=== PATIENT | female | born 1990 | race Caucasian/White ===

== ENCOUNTER 2019-02-18 13:18 | Outpatient (CLI) | payer OTHER | END 2019-02-18 23:59 | disposition home or self-care (01) | LOC: LAB 13:18 | PROVIDERS: ATTEND Obstetrics & Gynecology Obstetrics | DX: N91.2 Amenorrhea, unspecified (principal) | CPT/HCPCS: 36415; 84702 ==

== ENCOUNTER 2019-06-02 12:28 | Outpatient (CLI) | payer OTHER | END 2019-06-02 23:59 | disposition home or self-care (01) | LOC: RAD 12:28 | PROVIDERS: ATTEND Obstetrics & Gynecology Obstetrics | DX: E04.2 Nontoxic multinodular goiter (principal) | CPT/HCPCS: 76536 ==

== ENCOUNTER 2019-06-15 09:37 | Outpatient (CLI) | payer OTHER ==
[2019-06-17 13:11] LABS: FSH, SERUM 6.4 mIU/mL (.); INSULIN 5.7 uIU/mL (2.6-24.9); PROLACTIN 7.4 ng/mL (4.8-23.3)
== END 2019-06-15 23:59 | disposition home or self-care (01) ==
LOC: LAB 09:37
PROVIDERS: ATTEND Specialist
DX: Z31.89 Encounter for other procreative management (principal); N97.0 Female infertility associated with anovulation
CPT/HCPCS: 36415; 82947; 83001; 83525; 84146; 84402; 84403; 84439; 84443

== ENCOUNTER 2020-01-01 11:42 | Emergency (ER) | payer OTHER ==
[~2020-01-01] VITALS: Ht 175.3 cm; Wt 64.0 kg
[2020-01-01 11:55] VITALS: BP 132/96
[2020-01-01] MEDS ORDERED: BENZ-16 PO (11:59)
[2020-01-01] MEDS ORDERED: ALBU8.5H8 IH (11:59)
[2020-01-01] MEDS ORDERED: AZIT250T82 PO (11:59)
== END 2020-01-01 12:08 | disposition home or self-care (01) ==
LOC: ER 11:42
DX: J02.9 Acute pharyngitis, unspecified (principal); R05 Cough; R09.89 Other specified symptoms and signs involving the circulatory and respiratory systems; R51 Headache; M79.18 Myalgia, other site; R53.83 Other fatigue; Z79.899 Other long term (current) drug therapy
CPT/HCPCS: 99283

== ENCOUNTER 2020-05-10 09:10 | Emergency (ER) | payer BC, OTHER ==
[~2020-05-10] VITALS: Ht 175.3 cm; Wt 68.2 kg
[~2020-05-10 09:10] MED LIST: ALBU8.5H8 IH
[2020-05-10 09:25] VITALS: BP 124/68
== END 2020-05-10 10:03 | disposition home or self-care (01) ==
LOC: ER 09:11
DX: Z03.818 Encounter for observation for suspected exposure to other biological agents ruled out (principal); O98.511 Other viral diseases complicating pregnancy, first trimester; R50.9 Fever, unspecified; M79.10 Myalgia, unspecified site; R11.2 Nausea with vomiting, unspecified; R19.7 Diarrhea, unspecified; R53.1 Weakness; Z3A.08 8 weeks gestation of pregnancy; Z79.899 Other long term (current) drug therapy
CPT/HCPCS: 36415; 99283

== ENCOUNTER 2020-06-01 12:49 | Outpatient (CLI) | payer BC ==
[2020-06-01 13:57] LABS: BASOPHILS # (AUTO) 0.1 X10'3 (0-0.2); BASOPHILS % (AUTO) 0.6 % (0-1); EOSINOPHILS # (AUTO) 0.2 X10'3 (0-0.9); EOSINOPHILS % (AUTO) 1.4 % (0-6); HEMATOCRIT 37.3 % (35.0-45.0); HEMOGLOBIN 12.4 g/dl (12.0-16.0); LYMPHOCYTES # (AUTO) 1.9 X10'3 (1.1-4.8); MEAN CORPUSCULAR HEMOGLOBIN 30.3 PG (27.0-31.0); MEAN CORPUSCULAR HGB CONC 33.3 g/dL (33.0-36.5); MEAN CORPUSCULAR VOLUME 91.2 FL (78-98); MEAN PLATELET VOLUME 7.9 FL (7.4-10.4); MONOCYTES # (AUTO) 0.6 X10'3 (0-0.9); NEUTROPHILS # (AUTO) 9.3 X10'3 (1.8-7.7); PLATELET COUNT 318 X10'3 (140-440); RED CELL DISTRIBUTION WIDTH 12.3 % (11.5-14.5)
[2020-06-01 14:20] LABS: CLARITY,URINE CLEAR (Clear); COLOR,URINE YELLOW (Yellow); GLUCOSE, URINE NEGATIVE (Neg); KETONES,URINE NEGATIVE (Neg); LEUKOCYTE ESTERASE ,URINE NEGATIVE (Neg); NITRITES, URINE NEGATIVE (Neg); OCCULT BLOOD,URINE NEGATIVE (Neg); PROTEIN,URINE NEGATIVE (Neg); UROBILINOGEN,URINE 0.2 E.U/dL (0.2-1.0)
[2020-06-01 14:31] LABS: UA COLLECTION TYPE CLN CATCH MIDSTREAM
[2020-06-01 14:33] LABS: URINE AMPHETAMINE SCREEN NEGATIVE (Neg); URINE BARBITUATE SCREEN NEGATIVE (Neg); URINE BENZODIAZEPINES SCREEN NEGATIVE (Neg); URINE CANNABINOID SCREEN NEGATIVE (Neg); URINE COCAINE SCREEN NEGATIVE (Neg); URINE METHADONE SCREEN NEGATIVE (Neg); URINE OPIATE SCREEN NEGATIVE (Neg); URINE PHENCYCLIDINE SCREEN NEGATIVE (Neg)
[2020-06-01 15:54] LABS: HIV ANTIBODY 1&2 RAPID NON-REACTIVE (Neg)
[2020-06-03 09:00] LABS: HBSAG SCREEN Negative (Negative); VARICELLA-ZOSTER VIRUS AB, IGG 1472 index (Immune >165)
[2020-06-03 15:38] LABS: RUBELLA ANTIBODIES, IGG 1.33 index (Immune >0.99)
== END 2020-06-01 23:59 | disposition home or self-care (01) ==
LOC: LAB 12:49
PROVIDERS: ATTEND Obstetrics & Gynecology Obstetrics
DX: Z31.430 Encounter of female for testing for genetic disease carrier status for procreative management (principal); Z34.80 Encounter for supervision of other normal pregnancy, unspecified trimester
CPT/HCPCS: 36415; 80305; 81003; 84443; 85025; 86592; 86703; 86762; 86885; 86900; 86901; 87340; 87491

== ENCOUNTER 2020-10-06 07:05 | Outpatient (CLI) | payer BC ==
[2020-10-06 07:22] LABS: BASOPHILS # (AUTO) 0.1 X10'3 (0-0.2); BASOPHILS % (AUTO) 0.7 % (0-1); EOSINOPHILS # (AUTO) 0.1 X10'3 (0-0.9); EOSINOPHILS % (AUTO) 0.8 % (0-6); HEMATOCRIT 36.3 % (35.0-45.0); HEMOGLOBIN 12.3 g/dl (12.0-16.0); LYMPHOCYTES # (AUTO) 1.4 X10'3 (1.1-4.8); LYMPHOCYTES % (AUTO) 15.6 % (21-51); MEAN CORPUSCULAR HEMOGLOBIN 31.6 PG (27.0-31.0); MEAN CORPUSCULAR HGB CONC 34.1 g/dL (33.0-36.5); MEAN CORPUSCULAR VOLUME 92.8 FL (78-98); MEAN PLATELET VOLUME 7.9 FL (7.4-10.4); MONOCYTES # (AUTO) 0.7 X10'3 (0-0.9); MONOCYTES % (AUTO) 7.5 % (2-12); NEUTROPHILS # (AUTO) 6.8 X10'3 (1.8-7.7); NEUTROPHILS % (AUTO) 75.4 % (42-75); PLATELET COUNT 300 X10'3 (140-440); RED CELL DISTRIBUTION WIDTH 12.1 % (11.5-14.5)
== END 2020-10-06 23:59 | disposition home or self-care (01) ==
LOC: LAB 07:05
PROVIDERS: ATTEND Obstetrics & Gynecology Obstetrics
DX: Z34.92 Encounter for supervision of normal pregnancy, unspecified, second trimester (principal); Z3A.00 Weeks of gestation of pregnancy not specified
CPT/HCPCS: 36415; 82950; 85025; 86592

== ENCOUNTER 2021-02-04 10:50 | Day surgery (SDC) | payer BC ==
[~2021-02-04] VITALS: Ht 175.3 cm; Wt 72.6 kg
[~2021-02-04 10:50] MED LIST changes: -ALBU8.5H8 IH; +METR-159 PO; +PNV1TABL75 PO; +clindamycin-Cleocin 900mg/D5W 50 ML IV ONE; +famotidine 20mg tablet PO ONE; +ringers solution, lacted 1,000 ML IV SCH
[2021-02-04 11:00] VITALS: BP 111/74
[2021-02-04 12:09] LABS: BASOPHILS % (AUTO) 0.8 % (0-1); EOSINOPHILS # (AUTO) 0.7 X10'3 (0-0.9); EOSINOPHILS % (AUTO) 11.2 % (0-6); HEMATOCRIT 37.8 % (35.0-45.0); HEMOGLOBIN 12.6 g/dl (12.0-16.0); LYMPHOCYTES # (AUTO) 1.3 X10'3 (1.1-4.8); LYMPHOCYTES % (AUTO) 22.2 % (21-51); MEAN CORPUSCULAR HEMOGLOBIN 30.4 PG (27.0-31.0); MEAN CORPUSCULAR HGB CONC 33.2 g/dL (33.0-36.5); MEAN CORPUSCULAR VOLUME 91.4 FL (78-98); MEAN PLATELET VOLUME 7.9 FL (7.4-10.4); MONOCYTES # (AUTO) 0.4 X10'3 (0-0.9); MONOCYTES % (AUTO) 7.1 % (2-12); NEUTROPHILS # (AUTO) 3.4 X10'3 (1.8-7.7); NEUTROPHILS % (AUTO) 58.7 % (42-75); PLATELET COUNT 294 X10'3 (140-440); RED BLOOD COUNT 4.14 X10'6 (4.20-5.60); RED CELL DISTRIBUTION WIDTH 12.6 % (11.5-14.5); WHITE BLOOD COUNT 5.8 X10'3 (4.5-11.0)
[2021-02-04 12:22] LABS: ALANINE AMINOTRANSFERASE 32 U/L (12-78); ALBUMIN 4.2 G/DL (3.4-5.0); ALBUMIN/GLOBULIN RATIO 1.2 (1.1-1.5); ALKALINE PHOSPHATASE 70 IU/L (46-116); ANION GAP 9 (8-16); ASPARTATE AMINO TRANSFERASE 19 U/L (10-37); BILIRUBIN,TOTAL 0.5 MG/DL (0.1-1.0); BLOOD UREA NITROGEN 13 MG/DL (7-18); BUN/CREATININE RATIO 16.9 (6.6-38.0); CALCIUM 9.6 MG/DL (8.5-10.1); CHLORIDE 107 MMOL/L (99-107); CREATININE 0.77 MG/DL (0.40-0.90); GLUCOSE 74 MG/DL (70-104); POTASSIUM 4.1 MMOL/L (3.5-5.1); SODIUM 144 MMOL/L (135-145); TOTAL CARBON DIOXIDE 28.5 MMOL/L (24-32); TOTAL PROTEIN 7.6 G/DL (6.4-8.2); eGFR 89 ML/MIN
[2021-02-04 12:34] LABS: BETA HCG,QUANTITATIVE < 1.0 mIU/ml
[2021-02-04] MEDS ORDERED: meperidine/PF 25mg/ml syringe IV ONE (14:05)
[2021-02-04] MEDS ORDERED: morphine 4 MG/ML inj SYRINge IV PRN (14:35)
[2021-02-04] MEDS ORDERED: ondansetron/PF 4mg/2ml inj IV PRN (14:35)
[2021-02-04] MEDS ORDERED: meperidine/PF 25mg/ml syringe IV PRN ×3 (14:35)
[2021-02-04] MEDS ORDERED: proCHLORperazine 10 MG/2 ml inj IV PRN (14:35)
[2021-02-04] MEDS ORDERED: ringers solution, lacted 1,000 ML IV SCH (14:35)
[2021-02-04] MEDS ORDERED: morphine 2 MG/ML inj. syringe IV PRN (14:35)
[2021-02-04] MEDS ORDERED: sevoflurane 250ml liquid IH ONE (15:15)
[2021-02-04] MEDS ORDERED: fentaNYL/PF 50MCG/1 ML 2ML syringe ONE (15:18)
[2021-02-04] MEDS ORDERED: midazolam 1 mg/ML 2ml injection ONE (15:19)
[2021-02-04] MEDS ORDERED: ondansetron/PF 4mg/2ml inj ONE (15:21)
[2021-02-04 16:00] VITALS: BP 127/64
[2021-02-04] MEDS ORDERED: meperidine/PF 25mg/ml syringe ONE (16:00)
--- NOTE | 2021-02-04 16:00 | NUR ---
Received from OR via [facility] , accompanied by Anesthesiologist RAINA and report given by Anesthesiolgist. PATIENT WITH 20G PIV IN LEFT UE RUNNING LR AT 100. DENIES PAIN. OR NEED FOR PAIN MEDS. VSS. DEQUAN PAD IN PLACE. Addendum: 02/04/21 at 1621 by Ralf Summers RN, RN Amended: Links added.
[2021-02-04 16:10] VITALS: BP 122/79
[2021-02-04] MEDS ORDERED: propofol inj 20 ML IV ONE (16:11)
[2021-02-04] MEDS ORDERED: LIDOcaine 2% (20mg/ml) 5ml vial ONE (16:11)
[2021-02-04] MEDS ORDERED: rocuronium 10mg/ml inj IV ONE (16:11)
[2021-02-04] MEDS ORDERED: glycopyrrolate 0.2mg/ml inj ONE (16:11)
[2021-02-04] MEDS ORDERED: dexamethasone sod phosphate 4mg/ml inj. ONE (16:12)
[2021-02-04] MEDS ORDERED: neostigmine methylsulfate 1 MG/ML 10ml vial ONE (16:12)
[2021-02-04 16:20] VITALS: BP 120/79
[2021-02-04 16:30] VITALS: BP 125/66
[2021-02-04 16:40] VITALS: BP 114/69
--- NOTE | 2021-02-04 16:50 | NUR ---
PATIENT VERBALIZED UNDERSTANDING, OPPORTUNITY TO ASK QUESTIONS GIVEN AND PATIENT COMFORTABLE WITH DC. IV TAKEN OUT WITHOUT COMPLICATION. PATIENT HAS MET ALL DC CRITERIA FOR DC HOME. I HAVE REVIEWED D/C INSTRUCTIONS WITH PATIENT. TAKEN OUT VIA WHEELCHAIR WHERE PATIENT WAS TAKEN HOME WITH ALL BELONGINGS. FAMILY GAVE PATIENT TRANSPORT HOME. MEDICATED WITH ORAL PAIN PILL PRIOR TO DC. VSS. SPOUSE DROVE PATIENT HOME. Addendum: 02/04/21 at 1713 by Ralf Summers RN, RN Amended: Links added.
[2021-02-04] MEDS ORDERED: HYDROcodone/acetaminophen 10/325mg tab PO ONE (16:55)
== END 2021-02-04 16:50 | disposition home or self-care (01) ==
LOC: PAS 10:50
PROVIDERS: ATTEND Obstetrics & Gynecology Obstetrics
DX: O72.1 Other immediate postpartum hemorrhage (principal); N99.2 Postprocedural adhesions of vagina; D64.9 Anemia, unspecified; Z79.899 Other long term (current) drug therapy; Z88.1 Allergy status to other antibiotic agents; Z72.89 Other problems related to lifestyle; Z85.820 Personal history of malignant melanoma of skin; Z88.0 Allergy status to penicillin; Z20.822 Contact with and (suspected) exposure to COVID-19; Z86.16 Personal history of COVID-19; Z83.3 Family history of diabetes mellitus; Z82.49 Family history of ischemic heart disease and other diseases of the circulatory system; Z80.3 Family history of malignant neoplasm of breast; Z83.2 Family history of diseases of the blood and blood-forming organs and certain disorders involving the immune mechanism; R97.8 Other abnormal tumor markers
CPT/HCPCS: 36415; 59160; 80053; 84702; 85025; 86885; 86900; 86901; 87426; A6402; J1100; J2001; J2175; J2250; J2270; J2405; J2704; J2710; J3010; J7030; J7120; A4338; A4355; A4618; A6258; A7000; J3490

== ENCOUNTER 2021-06-24 11:11 | Outpatient (CLI) | payer BC ==
[~2021-06-24 11:11] MED LIST changes: -clindamycin-Cleocin 900mg/D5W 50 ML IV ONE; -famotidine 20mg tablet PO ONE; -ringers solution, lacted 1,000 ML IV SCH
== END 2021-06-24 23:59 | disposition home or self-care (01) ==
LOC: RAD 11:11
PROVIDERS: ATTEND Surgery
DX: R10.9 Unspecified abdominal pain (principal); R19.5 Other fecal abnormalities
CPT/HCPCS: 36415; 87338

== ENCOUNTER 2022-02-02 14:31 | Outpatient (CLI) | payer BC ==
[2022-02-02 15:18] LABS: BASOPHILS % (AUTO) 0.4 % (0-1); EOSINOPHILS # (AUTO) 0.1 X10'3 (0-0.9); EOSINOPHILS % (AUTO) 1.5 % (0-6); HEMATOCRIT 36.8 % (35.0-45.0); HEMOGLOBIN 12.4 g/dl (12.0-16.0); LYMPHOCYTES # (AUTO) 1.7 X10'3 (1.1-4.8); LYMPHOCYTES % (AUTO) 16.7 % (21-51); MEAN CORPUSCULAR HEMOGLOBIN 30.3 PG (27.0-31.0); MEAN CORPUSCULAR HGB CONC 33.7 g/dL (33.0-36.5); MEAN CORPUSCULAR VOLUME 89.8 FL (78-98); MEAN PLATELET VOLUME 7.6 FL (7.4-10.4); MONOCYTES # (AUTO) 0.7 X10'3 (0-0.9); MONOCYTES % (AUTO) 6.8 % (2-12); NEUTROPHILS # (AUTO) 7.4 X10'3 (1.8-7.7); NEUTROPHILS % (AUTO) 74.6 % (42-75); PLATELET COUNT 324 X10'3 (140-440); RED CELL DISTRIBUTION WIDTH 13.2 % (11.5-14.5); WHITE BLOOD COUNT 9.9 X10'3 (4.5-11.0)
[2022-02-02 15:28] LABS: CLARITY,URINE SLIGHTLY CLOUDY (Clear); COLOR,URINE YELLOW (Yellow); GLUCOSE, URINE NEGATIVE (Neg); KETONES,URINE NEGATIVE (Neg); LEUKOCYTE ESTERASE ,URINE NEGATIVE (Neg); NITRITES, URINE NEGATIVE (Neg); OCCULT BLOOD,URINE NEGATIVE (Neg); PH,URINE 6.5 (4.8-8.0); PROTEIN,URINE NEGATIVE (Neg); UROBILINOGEN,URINE 0.2 E.U/dL (0.2-1.0)
[2022-02-02 15:30] LABS: UA COLLECTION TYPE NON-SPECIFIED
[2022-02-02 15:34] LABS: URINE AMPHETAMINE SCREEN NEGATIVE (Neg); URINE BARBITUATE SCREEN NEGATIVE (Neg); URINE BENZODIAZEPINES SCREEN NEGATIVE (Neg); URINE CANNABINOID SCREEN NEGATIVE (Neg); URINE COCAINE SCREEN NEGATIVE (Neg); URINE METHADONE SCREEN NEGATIVE (Neg); URINE OPIATE SCREEN NEGATIVE (Neg); URINE PHENCYCLIDINE SCREEN NEGATIVE (Neg)
[2022-02-02 16:31] LABS: HIV ANTIBODY 1&2 RAPID NON-REACTIVE (Neg)
[2022-02-02 16:31] LABS: BACTERIA,URINE 1+ /HPF (Neg); RBC,URINE 0-2 /HPF (0-2); SQUAMOUS EPITHELIAL CELL,UR MODERATE /LPF (FEW); WBC,URINE 0-4 /HPF (0-4)
== END 2022-02-02 23:59 | disposition home or self-care (01) ==
LOC: LAB 14:31
PROVIDERS: ATTEND Obstetrics & Gynecology Obstetrics
DX: Z34.80 Encounter for supervision of other normal pregnancy, unspecified trimester (principal); Z31.430 Encounter of female for testing for genetic disease carrier status for procreative management
CPT/HCPCS: 36415; 80305; 81001; 84443; 85025; 86592; 86703; 86762; 86803; 86885; 86900; 86901; 87340; 87491

== ENCOUNTER 2022-04-13 09:21 | Outpatient (CLI) | payer BC ==
[2022-04-13 11:03] LABS: BASOPHILS # (AUTO) 0.1 X10'3 (0-0.2); BASOPHILS % (AUTO) 0.5 % (0-1); EOSINOPHILS # (AUTO) 0.1 X10'3 (0-0.9); EOSINOPHILS % (AUTO) 0.7 % (0-6); HEMATOCRIT 35.3 % (35.0-45.0); HEMOGLOBIN 11.8 g/dl (12.0-16.0); LYMPHOCYTES # (AUTO) 1.2 X10'3 (1.1-4.8); LYMPHOCYTES % (AUTO) 11.9 % (21-51); MEAN CORPUSCULAR HEMOGLOBIN 30.6 PG (27.0-31.0); MEAN CORPUSCULAR HGB CONC 33.5 g/dL (33.0-36.5); MEAN CORPUSCULAR VOLUME 91.3 FL (78-98); MEAN PLATELET VOLUME 7.9 FL (7.4-10.4); MONOCYTES # (AUTO) 0.6 X10'3 (0-0.9); MONOCYTES % (AUTO) 5.5 % (2-12); NEUTROPHILS # (AUTO) 8.1 X10'3 (1.8-7.7); NEUTROPHILS % (AUTO) 81.4 % (42-75); PLATELET COUNT 289 X10'3 (140-440); RED BLOOD COUNT 3.86 X10'6 (4.20-5.60); RED CELL DISTRIBUTION WIDTH 12.9 % (11.5-14.5)
== END 2022-04-13 23:59 | disposition home or self-care (01) ==
LOC: LAB 09:21
PROVIDERS: ATTEND Obstetrics & Gynecology Obstetrics
DX: Z34.92 Encounter for supervision of normal pregnancy, unspecified, second trimester (principal); Z3A.00 Weeks of gestation of pregnancy not specified
CPT/HCPCS: 36415; 82950; 85025; 86592

== ENCOUNTER 2025-08-13 06:16 | Outpatient (CLI) | payer OTHER ==
[2025-08-13] MEDS ORDERED: LIDOcaine 1% (10mg/ml)w/preservative inj. 20ml MDV ONE (06:41)
[2025-08-13] MEDS ORDERED: iohexol 300 MG/1 ML 50ml polymer ONE (06:41)
[2025-08-13] MEDS ORDERED: GADOTERATE MEGLUMINE 7.5 MMOL/15 ML VIAL IV ONE (06:41)
[2025-08-13] MEDS ORDERED: LIDOcaine 1%/PF 5ML 10 MG/ML VIAL ONE (06:41)
--- NOTE | 2025-08-13 09:51 | RADIOLOGY REPORT ---
CLINICAL INFORMATION: PAIN IN LEFT HIP. TECHNIQUE: Multisequence multiplanar MR arthrogram images of the left hip were obtained after the uneventful intra-articular injection of a dilute gadolinium contrast mixture under fluoroscopic guidance. Refer to the separately dictated arthrogram injection report for details concerning the arthrogram injection. COMPARISON: Correlation made to same day arthrogram injection Images. FINDINGS: BONES: No acute fracture or osteonecrosis. Minimal subchondral edema in the superior aspect of the left femoral head seen on the IR images only, may be due to mild stress related changes/stress injury or due to chondromalacia, with chondral thinning and possible mild fissuring in this location. JOINT: There is adequate distention of the left hip joint with contrast. No loose bodies or significant synovitis visualized. Mild joint space narrowing in the left hip. There is fraying and small tear at the anterior superior labrum. BURSAE: Unremarkable. No significant fluid in the trochanteric or iliopsoas bursae. TENDONS: Mild tendinosis of the distal gluteus medius and minimus tendons. Origins of the rectus femoris tendon and hamstring tendons are intact. Distal insertion of the iliopsoas tendon is intact. MUSCLES: Normal muscle bulk. No significant atrophy. No evidence of muscle strain or tear. OTHER: No other significant findings. IMPRESSION: 1. Fraying and small tear of the anterior superior labrum. 2. Minimal subchondral edema in the superior aspect of the left femoral head, may be due to mild stress related changes/stress injury or due to adjacent chondromalacia described above. 3. Additional findings as described above.
--- NOTE | 2025-08-13 10:30 | RADIOLOGY REPORT ---
ANGIO ARTHROGRAM (A) Date: 08/13/2025 07:14 AM Clinical History: PAIN IN LEFT HIP Comparison: None Procedure: Verbal and written informed consent were obtained from the patient for the procedure of left hip joint fluoroscopically guided arthrogram, after the procedure, risks, and benefits of the procedure were explained to the patient. Risks include bleeding, infection, reaction to injected medications, and damage to surrounding anatomic structures. The patient's questions were answered. The patient's most recent medical history was reviewed. A time out was performed to verify the patient's name, date of , and correct location of the procedure, prior to initiation of the procedure. The patient was placed supine on the fluoroscopic table and the area overlying the left hip joint was prepped and draped in the usual sterile fashion. The patient tolerated the procedure well. There were no immediate complications. Home-care instructions were reviewed with the patient prior to the patient's discharge from the fluoroscopy suite. The patient verbally affirmed understanding of these instructions. Impression: Technically successful fluoroscopically guided left hip joint arthrogram. The patient was transported to MRI for further imaging at the completion of the procedure. Procedure by Dr. Fisher
== END 2025-08-13 23:59 | disposition home or self-care (01) ==
LOC: RAD 06:16
PROVIDERS: ATTEND Orthopaedic Surgery
DX: S73.192A Other sprain of left hip, initial encounter (principal); M16.12 Unilateral primary osteoarthritis, left hip; M76.02 Gluteal tendinitis, left hip; M25.552 Pain in left hip; Z79.890 Hormone replacement therapy; X58.XXXA Exposure to other specified factors, initial encounter; Y93.89 Activity, other specified; Y92.89 Other specified places as the place of occurrence of the external cause; Y99.8 Other external cause status
CPT/HCPCS: 27093; 73722; 77002; A9575; J3490; Q9967